=== PATIENT | female | born 1960 | race Caucasian/White ===

== ENCOUNTER 2017-02-27 00:45 | Emergency (ER) | payer OTHER ==
[2017-02-27] MEDS ORDERED: Sodium Chloride 0.9% 1,000 ML IV STA (01:04)
[2017-02-27 01:08] VITALS: O2SAT 98; BMI 29.2
[2017-02-27 01:37] LABS: BASO % 0.1 % (0.0-2.0); EOS # 0.1 K/uL (0.0-0.7); EOS % 1.7 % (0.0-4.0); HEMATOCRIT 41.9 % (34.0-47.0); LYMPH # 0.7 K/uL (1.0-4.3); LYMPH % 8.5 % (20.0-40.0); MEAN CELL VOLUME 84.5 fl (81.0-99.0); MEAN CORPUSCULAR HEMOGLOBIN 27.3 pg (27.0-31.0); MEAN CORPUSCULAR HGB CONC 32.3 g/dL (33.0-37.0); MEAN PLATELET VOLUME 8.4 fl (7.2-11.7); MONO # 0.7 K/uL (0.0-0.8); MONO % 8.8 % (0.0-10.0); NEUT # 6.4 K/uL (1.8-7.0); NEUT % 80.9 % (50.0-75.0); PLATELET COUNT 237 K/uL (130-400); RED CELL DISTRIBUTION WIDTH 13.3 % (11.5-14.5); WHITE BLOOD COUNT 7.9 K/uL (4.8-10.8)
[2017-02-27 01:46] LABS: BLOOD UREA NITROGEN 25 mg/dl (7-17); CALCIUM 8.9 mg/dL (8.4-10.2); CARBON DIOXIDE 23 mmol/L (22-30); CHLORIDE 104 mmol/L (98-107); GFR AFRICAN-AMERICAN > 60; GLUCOSE,RANDOM 137 mg/dL (65-105); POTASSIUM 4.6 MMOL/L (3.6-5.0); SODIUM 141 mmol/l (132-148)
--- NOTE | 2017-02-27 02:13 | ED PDOC ---
HPI:Nausea, Vomiting, Diarrhea Time Seen by Provider: 02/27/17 00:51 Chief Complaint (Nursing): Abdominal Pain Chief Complaint (Provider): n/v/d History Per: Patient History/Exam Limitations: no limitations Onset/Duration Of Symptoms: Hrs Current Symptoms Are (Timing): Intermittent Episodes Have you had recent travel within the past 21 days to any of the following countries: [place], [place], [place] or [place]?: No Additional Complaint(s): 56yo female presents to the ED s/p eating paella for dinner yesterday evening and then woke up in the middle of the night feeling nauseated and vomiting more than 6 times (non-bloody, non-bilious) and also having 6 episodes of watery diarrhea. Denies abdominal pain, fever, chills. Patient feels very weak and tired. Past Medical History Reviewed: Historical Data, Nursing Documentation, Vital Signs Vital Signs: Last Vital Signs Temp 98.6 F 02/27/17 01:05 Pulse 106 H 02/27/17 01:05 Resp 18 02/27/17 01:05 BP 133/89 02/27/17 01:05 Pulse Ox 98 02/27/17 01:05 - Medical History PMH: Diverticulitis, Hyperthyroidism Denies: HIV, Chronic Kidney Disease - Surgical History Surgical History: - Family History Family History: States: No Known Family Hx - Home Medications Home Medications: Ambulatory Orders Medication Instructions Recorded Ciprofloxacin HCl [Cipro] 500 mg PO BID #20 tablet 03/27/16 Dicyclomine [Bentyl] 20 mg PO Q12H PRN 03/27/16 Methimazole [Methimazole] 15 mg PO DAILY 03/27/16 Metronidazole [Flagyl] 500 mg PO BID #20 tablet 03/27/16 Oxycodone HCl/Acetaminophen 1 tab PO Q6 PRN #12 tab 03/27/16 [Percocet 325 mg-5 mg] Vitamin B Complex [Vitamin B 1 tab PO DAILY 03/27/16 Complex] Ondansetron [Zofran] 4 mg PO Q8H #12 tab 02/27/17 - Allergies Allergies/Adverse Reactions: Allergies Allergy/AdvReac Type Severity Reaction Status Date / Time No Known Allergies Allergy Verified 02/27/17 01:04 Review of Systems ROS Statement: Except As Marked, All Systems Reviewed And Found Negative Constitutional: Positive for: Weakness, Other (tired ). Negative for: Fever, Chills Gastrointestinal: Positive for: Nausea, Vomiting, Diarrhea. Negative for: Abdominal Pain Physical Exam - Reviewed Nursing Documentation Reviewed: Yes Vital Signs Reviewed: Yes - Physical Exam Appears: Positive for: Well, No Acute Distress Head Exam: Positive for: ATRAUMATIC, NORMAL INSPECTION, NORMOCEPHALIC Skin: Positive for: Normal Color, Warm, Dry Eye Exam: Positive for: Normal appearance, EOMI, PERRL ENT: Positive for: Normal ENT Inspection Neck: Positive for: Normal, Painless ROM, Supple Cardiovascular/Chest: Positive for: Regular Rate, Rhythm. Negative for: Murmur , Tachycardia Respiratory: Positive for: Normal Breath Sounds. Negative for: Wheezing, Respiratory Distress Gastrointestinal/Abdominal: Positive for: Normal Exam, Soft. Negative for: Tenderness Back: Positive for: Normal Inspection. Negative for: L CVA Tenderness, R CVA Tenderness Extremity: Positive for: Normal ROM. Negative for: Deformity, Swelling Neurologic/Psych: Positive for: Alert, Oriented - Laboratory Results Result Diagrams: 02/27/17 01:34 02/27/17 01:34 - ECG O2 Sat by Pulse Oximetry: 98 Pulse Ox Interpretation: Normal (RA) Medical Decision Making Medical Decision Makin: Impression: viral gastroenteritis Plan: Labs IVF, Zofran 4mg IVP reassess 0240: Patient feeling much better. Tolerated PO. Advised f/u w/ PCP and return precautions given. Scribe Attestation: Documented by Angela Toney acting as a scribe for Austin Cantu MD. Provider Scribe Attestation: All medical record entries made by the Scribe were at my direction and personally dictated by me. I have reviewed the chart and agree that the record accurately reflects my personal performance of the history, physical exam, medical decision making, and the department course for this patient. I have also personally directed, reviewed, and agree with the discharge instructions and disposition. Disposition - Clinical Impression Clinical Impression: Gastroenteritis - Patient ED Disposition Is Patient to be Admitted: No - Disposition Referrals: Shelby Magana MD [Primary Care Provider] - Disposition: Routine/Home Disposition Time: 02:40 Condition: STABLE Prescriptions: Ondansetron [Zofran] 4 mg PO Q8H #12 tab Instructions: Gastroenteritis (DC)
[2017-02-27 02:59] VITALS: BP 129/78; PULSE 89; RESP 20; TEMP 98.7
[2017-02-27 03:28] LABS: EOSINOPHIL 2 % (0-7); NEUTROPHIL 82 % (42-75); TOTAL CELLS COUNTED 100
[2017-02-27 03:29] LABS: LARGE PLATELETS PRESENT
== END 2017-02-27 02:46 | disposition home or self-care (01) ==
LOC: H.ER 00:45
DX: K52.9 Noninfective gastroenteritis and colitis, unspecified (principal); E05.90 Thyrotoxicosis, unspecified without thyrotoxic crisis or storm

== ENCOUNTER 2017-03-11 02:25 | Emergency (ER) | payer OTHER ==
[2017-03-11 02:26] VITALS: BMI 29.2
[2017-03-11] MEDS ORDERED: Sodium Chloride 0.9% 1,000 ML IV STA (03:03)
--- NOTE | 2017-03-11 03:07 | ED PDOC ---
HPI: Abdomen Time Seen by Provider: 03/11/17 02:32 Chief Complaint (Nursing): Abdominal Pain Chief Complaint (Provider): abdominal pain History Per: Patient History/Exam Limitations: no limitations Onset/Duration Of Symptoms: Hrs Location Of Pain/Discomfort: LLQ Associated Symptoms: Diarrhea Additional History Per: Patient Additional Complaint(s): 56 y/o female history of diverticulitis presents with left lower abdominal pain x 1 day. Patient states pain started after eating "fried foods" all day. Associated nonbloody diarrhea. Denies fever, nausea/vomiting, chest pain, shortness of breath, palpitations, dysuria, hematuria. Patient states pain similar to previous diverticulitis flare-ups Past Medical History Reviewed: Historical Data, Nursing Documentation, Vital Signs Vital Signs: Last Vital Signs Temp 98.9 F 03/11/17 02:51 Pulse 89 03/11/17 02:51 Resp 16 03/11/17 02:51 BP 149/90 03/11/17 02:51 Pulse Ox 98 03/11/17 03:49 - Medical History PMH: Diverticulitis, Hyperthyroidism Denies: HIV, Chronic Kidney Disease - Surgical History Surgical History: - Family History Family History: States: Unknown Family Hx - Home Medications Home Medications: Ambulatory Orders Medication Instructions Recorded Ciprofloxacin HCl [Cipro] 500 mg PO BID #20 tablet 03/27/16 Dicyclomine [Bentyl] 20 mg PO Q12H PRN 03/27/16 Methimazole [Methimazole] 15 mg PO DAILY 03/27/16 Metronidazole [Flagyl] 500 mg PO BID #20 tablet 03/27/16 Oxycodone HCl/Acetaminophen 1 tab PO Q6 PRN #12 tab 03/27/16 [Percocet 325 mg-5 mg] Vitamin B Complex [Vitamin B 1 tab PO DAILY 03/27/16 Complex] Ondansetron [Zofran] 4 mg PO Q8H #12 tab 02/27/17 Ciprofloxacin HCl [Cipro] 500 mg PO BID #19 tab 03/11/17 Metronidazole [Flagyl] 500 mg PO TID #29 tablet 03/11/17 - Allergies Allergies/Adverse Reactions: Allergies Allergy/AdvReac Type Severity Reaction Status Date / Time No Known Allergies Allergy Verified 02/27/17 01:04 Review of Systems ROS Statement: Except As Marked, All Systems Reviewed And Found Negative Gastrointestinal: Positive for: Abdominal Pain Physical Exam - Reviewed Vital Signs Reviewed: Yes - Physical Exam Appears: Positive for: Well, Non-toxic, No Acute Distress Head Exam: Positive for: ATRAUMATIC, NORMAL INSPECTION, NORMOCEPHALIC Skin: Positive for: Normal Color Eye Exam: Positive for: Normal appearance ENT: Positive for: Normal ENT Inspection Cardiovascular/Chest: Positive for: Regular Rate, Rhythm Respiratory: Positive for: Normal Breath Sounds Gastrointestinal/Abdominal: Positive for: Bowel Sounds, Soft, Tenderness (llq). Negative for: Distended, Guarding, Rebound Back: Positive for: Normal Inspection. Negative for: L CVA Tenderness, R CVA Tenderness Extremity: Positive for: Normal ROM Neurologic/Psych: Positive for: Alert, Oriented - Laboratory Results Result Diagrams: 03/11/17 03:05 03/11/17 03:05 - ECG O2 Sat by Pulse Oximetry: 98 - Progress ED Course And Treament: labs, urine, IV fluids Patient refusing CT; states pain similar to previous diverticulitis flare ups, which resolves with antibiotics. Agreeable to labs Patient with blood in urine; denies back pain/flank pain, states she just has pain in left lower quadrant which "is diverticulitis because I know my body". Patient educated on findings, discharged with rx cipro, flagyl. Advised follow up PMD 2-3 days. Return to ED for worsening/concerning symptoms. Disposition - Clinical Impression Clinical Impression: Diverticulitis, Hematuria - Patient ED Disposition Is Patient to be Admitted: No Counseled Patient/Family Regarding: Studies Performed, Diagnosis, Need For Followup, Rx Given - Disposition Referrals: Shelby Magana MD [Primary Care Provider] - Disposition: Routine/Home Disposition Time: 03:46 Condition: IMPROVED Additional Instructions: Follow up with primary doctor in 2 days. Take medication as directed. Return to ED for worsening/concerning symptoms. Prescriptions: Ciprofloxacin HCl [Cipro] 500 mg PO BID #19 tab Metronidazole [Flagyl] 500 mg PO TID #29 tablet Instructions: Diverticulitis (ED), Acute Hematuria (ED) Print Language: ENGLISH
[2017-03-11 03:16] LABS: BASO # 0.1 K/uL (0.0-0.2); BASO % 0.4 % (0.0-2.0); EOS # 0.2 K/uL (0.0-0.7); EOS % 1.2 % (0.0-4.0); HEMATOCRIT 40.4 % (34.0-47.0); LYMPH # 1.2 K/uL (1.0-4.3); LYMPH % 9.2 % (20.0-40.0); MEAN CELL VOLUME 83.8 fl (81.0-99.0); MEAN CORPUSCULAR HEMOGLOBIN 27.8 pg (27.0-31.0); MEAN CORPUSCULAR HGB CONC 33.2 g/dL (33.0-37.0); MEAN PLATELET VOLUME 8.9 fl (7.2-11.7); MONO # 1.2 K/uL (0.0-0.8); MONO % 9.5 % (0.0-10.0); NEUT # 10.1 K/uL (1.8-7.0); NEUT % 79.7 % (50.0-75.0); PLATELET COUNT 273 K/uL (130-400); RED CELL DISTRIBUTION WIDTH 13.3 % (11.5-14.5)
[2017-03-11 03:18] LABS: CHLORIDE 103 mmol/L (98-107)
[2017-03-11 03:19] LABS: POTASSIUM 4.5 MMOL/L (3.6-5.0); SODIUM 136 mmol/l (132-148)
[2017-03-11 03:21] LABS: AST/SGOT 28 U/L (14-36); BILIRUBIN,TOTAL 0.6 mg/dl (0.2-1.3); CARBON DIOXIDE 26 mmol/L (22-30); GFR AFRICAN-AMERICAN > 60; WHITE BLOOD COUNT 12.7 K/uL (4.8-10.8)
[2017-03-11 03:22] LABS: ALB/GLOB RATIO 1.1 (1.0-2.1); ALKALINE PHOSPHATASE 79 U/L (38-126); ALT/SGPT 31 U/L (9-52); BLOOD UREA NITROGEN 19 mg/dl (7-17); CALCIUM 9.2 mg/dL (8.4-10.2); GLUCOSE,RANDOM 153 mg/dL (65-105); TOTAL PROTEIN 8.4 G/DL (6.3-8.2)
[2017-03-11 03:25] LABS: RBC URINE 22 /hpf (0-3); URINE BACTERIA RARE (<OCC); URINE BILIRUBIN NEGATIVE (NEGATIVE); URINE BLOOD LARGE (NEGATIVE); URINE COLOR AMBER (YELLOW); URINE GLUCOSE (UA) NEG (Normal); URINE KETONE NEGATIVE (NEGATIVE); URINE LEUKOCYTE ESTERASE NEG Leu/uL (Negative); URINE PROTEIN 30 mg/dL (NEGATIVE); WBC URINE 2 /hpf (0-5)
[2017-03-11 04:16] LABS: EOSINOPHIL 1 % (0-7); NEUTROPHIL 76 % (42-75); TOTAL CELLS COUNTED 100
[2017-03-11 04:38] VITALS: BP 141/85; PULSE 81; RESP 17; TEMP 98.7; O2SAT 99
== END 2017-03-11 04:37 | disposition home or self-care (01) ==
LOC: H.ER 02:25
DX: K57.92 Diverticulitis of intestine, part unspecified, without perforation or abscess without bleeding (principal); R31.9 Hematuria, unspecified; E05.90 Thyrotoxicosis, unspecified without thyrotoxic crisis or storm

== ENCOUNTER 2018-03-13 22:32 | Emergency (ER) | payer OTHER ==
[2018-03-13 22:33] VITALS: BMI 29.2
[2018-03-13] MEDS ORDERED: Sodium Chloride 0.9% 500 ML IV STA (23:52)
[2018-03-14 00:24] LABS: CALCIUM 8.4 mg/dL (8.4-10.2); GFR AFRICAN-AMERICAN > 60; GFR NON-AFRICAN AMERICAN > 60
[2018-03-14 00:29] LABS: BASO % 0.3 % (0.0-2.0); EOS # 0.1 K/uL (0.0-0.7); EOS % 0.6 % (0.0-4.0); HEMOGLOBIN 13.5 g/dL (12.0-16.0); LYMPH # 1.1 K/uL (1.0-4.3); LYMPH % 9.6 % (20.0-40.0); MEAN CELL VOLUME 86.4 fl (81.0-99.0); MEAN CORPUSCULAR HEMOGLOBIN 27.5 pg (27.0-31.0); MEAN CORPUSCULAR HGB CONC 31.8 g/dL (33.0-37.0); MEAN PLATELET VOLUME 8.2 fl (7.2-11.7); MONO # 0.9 K/uL (0.0-0.8); MONO % 7.5 % (0.0-10.0); NEUT # 9.4 K/uL (1.8-7.0); PLATELET COUNT 222 K/uL (130-400); RBC 4.93 Mil/uL (3.80-5.20); RED CELL DISTRIBUTION WIDTH 13.6 % (11.5-14.5); WHITE BLOOD COUNT 11.4 K/uL (4.8-10.8)
[2018-03-14 00:49] LABS: BLOOD UREA NITROGEN 17 mg/dl (7-17)
--- NOTE | 2018-03-14 00:52 | ED PDOC ---
HPI: Abdomen Time Seen by Provider: 03/13/18 23:24 Chief Complaint (Nursing): Abdominal Pain Chief Complaint (Provider): Abdominal Pain History Per: Patient History/Exam Limitations: no limitations Onset/Duration Of Symptoms: Hrs Current Symptoms Are (Timing): Still Present Location Of Pain/Discomfort: LLQ Associated Symptoms: Diarrhea. denies: Fever, Vomiting Additional Complaint(s): 57 year old female with a past medical history of HTN, diabetes, and diverticulitis presents to the ED complaining of ongoing, constant left lower quadrant pain, onset 24 hours. Patient reports of eating beans the day before when intense pain started. Patient states she has had multiple bowel movements that have appeared to be slightly loose. Patient noticed bright red blood in stools. Patient reports current pain appears to be very similar to the pain she felt when diagnosed with diverticulitis. Denies vomiting and fevers. Past Medical History Reviewed: Historical Data, Nursing Documentation, Vital Signs Vital Signs: Last Vital Signs Temp 98 F 03/14/18 02:21 Pulse 96 H 03/14/18 02:21 Resp 18 03/14/18 02:21 BP 140/76 03/14/18 02:21 Pulse Ox 100 03/14/18 02:40 - Medical History PMH: Diverticulitis, Hyperthyroidism Denies: HIV, Chronic Kidney Disease - Surgical History Surgical History: (x3) - Family History Family History: States: Diabetes - Home Medications Home Medications: Ambulatory Orders Medication Instructions Recorded Dicyclomine [Bentyl] 20 mg PO Q12H PRN 03/27/16 Methimazole [Methimazole] 15 mg PO DAILY 03/27/16 Oxycodone HCl/Acetaminophen 1 tab PO Q6 PRN #12 tab 03/27/16 [Percocet 325 mg-5 mg] Vitamin B Complex [Vitamin B 1 tab PO DAILY 03/27/16 Complex] Ondansetron [Zofran] 4 mg PO Q8H #12 tab 02/27/17 Ciprofloxacin HCl [Cipro] 500 mg PO BID #19 tab 03/11/17 Metronidazole [Flagyl] 500 mg PO TID #29 tablet 03/11/17 Ciprofloxacin [Cipro] 1 tab PO BID #20 tab 07/16/17 Dicyclomine [Bentyl] 20 mg PO BID PRN #30 tab 07/16/17 metroNIDAZOLE [Flagyl] 500 mg PO TID #30 tab 07/16/17 Ciprofloxacin HCl [Cipro] 500 mg PO BID #20 tablet 03/14/18 Metronidazole [Flagyl] 500 mg PO BID #20 tablet 03/14/18 - Allergies Allergies/Adverse Reactions: Allergies Allergy/AdvReac Type Severity Reaction Status Date / Time No Known Allergies Allergy Verified 03/13/18 23:17 Review of Systems ROS Statement: Except As Marked, All Systems Reviewed And Found Negative Constitutional: Negative for: Fever Gastrointestinal: Positive for: Abdominal Pain (left lower quadrant), Diarrhea, Hematochezia. Negative for: Vomiting Physical Exam - Reviewed Nursing Documentation Reviewed: Yes Vital Signs Reviewed: Yes - Physical Exam Appears: Positive for: Non-toxic, No Acute Distress Head Exam: Positive for: ATRAUMATIC, NORMOCEPHALIC Skin: Positive for: Normal Color, Warm, Dry Eye Exam: Positive for: Normal appearance, EOMI, PERRL ENT: Positive for: Normal ENT Inspection Neck: Positive for: Normal, Painless ROM, Supple Cardiovascular/Chest: Positive for: Regular Rate, Rhythm. Negative for: Murmur Respiratory: Positive for: Normal Breath Sounds. Negative for: Respiratory Distress Gastrointestinal/Abdominal: Positive for: Normal Exam, Soft, Tenderness (left lower quadrant tenderness) - Laboratory Results Result Diagrams: 03/14/18 00:12 03/14/18 00:12 - ECG O2 Sat by Pulse Oximetry: 100 (RA) Pulse Ox Interpretation: Normal Medical Decision Making Medical Decision Making: Time: 2356 Impression: left lower quadrant pain Differentials include but not limited to acute diverticulitis vs UTI Plan: -- CT Abd/Pelvis IV -- BMP -- ED Urine Dipstick -- CBC with differentials -- Bentyl 10 mg PO -- Morphine 2 mg IVPG -- Sodium Chrloide 500 mls/hr Time: 236 CT ABD/PELVIS IV RESULTS FINDINGS: Limitations: Motion artifact - mild. Lung bases: Minimal atelectasis/scarring. Heart: Mild cardiomegaly. 5.2 x 6.1 x 5.8 cm mass within right atrium. Mediastinum: Small hiatal hernia. ABDOMEN: Liver: Fatty infiltration. Gallbladder and bile ducts: No calcified stones. No ductal dilation. Pancreas: No ductal dilation. No mass. Spleen: No splenomegaly. Adrenals: No mass. Kidneys and ureters: No mass. Bilateral extrarenal pelvis. No hydronephrosis. Stomach and bowel: Scattered diverticula within colon. Xaxw-sw-dffkzlcs mural thickening short segment of proximal sigmoid colon. Lqse-qv-hninokap stranding within adjacent fat. No obstruction. PELVIS: Appendix: No findings to suggest acute appendicitis. Bladder: Unremarkable. Reproductive: Lobulated uterus with scattered coarse calcifications. ABDOMEN and PELVIS: Intraperitoneal space: Trace free fluid within pelvis. No free air. Bones/joints: Degenerative changes of spine. No acute fracture. Soft tissues: Apparent 0.4 x 0.4 cm asymmetric soft tissue density within right breast. Vasculature: Minimal atherosclerotic disease of aorta. No aneurysm. Lymph nodes: No pathologically enlarged lymph nodes. IMPRESSION: 1. Findings compatible with acute diverticulitis of sigmoid colon. Recommend endoscopy following resolution. 2. Mass within right atrium. Recommend cardiac ultrasound. 3. Probable fibroid uterus. 4. Right breast lesion. Correlate with mammography. 5. Incidental/non-acute findings are described above. Thank you for allowing us to participate in the care of your patient. Dictated and Authenticated by: Lance Orourke MD 03/14/2018 2:31 AM Eastern Time ([place] & [place]) Scribe Attestation: Documented by Patricia Lopez, acting as a scribe for Dr. Cami Gaines MD. Provider Scribe Attestation: All medical record entries made by the Scribe were at my direction and personally dictated by me. I have reviewed the chart and agree that the record accurately reflects my personal performance of the history, physical exam, medical decision making, and the department course for this patient. I have also personally directed, reviewed, and agree with the discharge instructions and disposition. Disposition - Clinical Impression Clinical Impression: Diverticulitis, Right atrial mass, Breast lesion - Patient ED Disposition Is Patient to be Admitted: No Doctor Will See Patient In The: Office Counseled Patient/Family Regarding: Studies Performed, Diagnosis, Need For Followup - Disposition Referrals: [facility] [Outside] Disposition: Routine/Home Disposition Time: 02:37 Condition: GOOD Additional Instructions: You have diverticulitis. Take you medications as instructed. You CT shows that you have atrial mass for which you will need ultrasound. You have lesion in your breast and you need mammography. Follow up with your PCP in 2-3 days. Prescriptions: Ciprofloxacin HCl [Cipro] 500 mg PO BID #20 tablet Metronidazole [Flagyl] 500 mg PO BID #20 tablet Instructions: Mammography, Diverticulitis
[2018-03-14] MEDS ORDERED: Iohexol 300 100 ML IJ ONE (01:07)
[2018-03-14] MEDS ORDERED: Sodium Chloride 0.9% 50 ML IV ONE (01:08)
[2018-03-14] MEDS: DiphenhydrAMINE 50 mg/ml Inj IV STA ×2 (02:21→02:39)
[2018-03-14 02:22] VITALS: RESP 18; TEMP 98
--- NOTE | 2018-03-14 02:31 | CT ---
EXAM: CT Abdomen and Pelvis With Intravenous Contrast CLINICAL HISTORY: 57 years old, female; Pain; Abdominal pain; Flank; Left lower quadrant (llq); Additional info: Llq pain TECHNIQUE: Axial computed tomography images of the abdomen and pelvis with intravenous contrast. All CT scans at this facility use one or more dose reduction techniques, viz.: automated exposure control; ma/kV adjustment per patient size (including targeted exams where dose is matched to indication; i.e. head); or iterative reconstruction technique. Coronal and sagittal reformatted images were created and reviewed. CONTRAST: 95 mL of omnipaque 300 administered intravenously. COMPARISON: No relevant prior studies available. FINDINGS: Limitations: Motion artifact - mild. Lung bases: Minimal atelectasis/scarring. Heart: Mild cardiomegaly. 5.2 x 6.1 x 5.8 cm mass within right atrium. Mediastinum: Small hiatal hernia. ABDOMEN: Liver: Fatty infiltration. Gallbladder and bile ducts: No calcified stones. No ductal dilation. Pancreas: No ductal dilation. No mass. Spleen: No splenomegaly. Adrenals: No mass. Kidneys and ureters: No mass. Bilateral extrarenal pelvis. No hydronephrosis. Stomach and bowel: Scattered diverticula within colon. Zbdk-go-vcryacsg mural thickening short segment of proximal sigmoid colon. Mloe-tx-erjpcpcb stranding within adjacent fat. No obstruction. PELVIS: Appendix: No findings to suggest acute appendicitis. Bladder: Unremarkable. Reproductive: Lobulated uterus with scattered coarse calcifications. ABDOMEN and PELVIS: Intraperitoneal space: Trace free fluid within pelvis. No free air. Bones/joints: Degenerative changes of spine. No acute fracture. Soft tissues: Apparent 0.4 x 0.4 cm asymmetric soft tissue density within right breast. Vasculature: Minimal atherosclerotic disease of aorta. No aneurysm. Lymph nodes: No pathologically enlarged lymph nodes. IMPRESSION: 1. Findings compatible with acute diverticulitis of sigmoid colon. Recommend endoscopy following resolution. 2. Mass within right atrium. Recommend cardiac ultrasound. 3. Probable fibroid uterus. 4. Right breast lesion. Correlate with mammography. 5. Incidental/non-acute findings are described above.
[2018-03-14] MEDS ORDERED: DiphenhydrAMINE 50 mg/ml Inj ONE (02:40)
[2018-03-14 02:48] LABS: LYMPHOCYTE 17 % (20-50); MONOCYTE 4 % (0-10); NEUTROPHIL 79 % (42-75); PLATELET ESTIMATE NORMAL (NORMAL); TOTAL CELLS COUNTED 100
[2018-03-14 03:11] VITALS: BP 138/76; PULSE 78; O2SAT 98
== END 2018-03-14 03:11 | disposition home or self-care (01) ==
LOC: H.ER 22:32
DX: K57.92 Diverticulitis of intestine, part unspecified, without perforation or abscess without bleeding (principal); R22.2 Localized swelling, mass and lump, trunk; N64.89 Other specified disorders of breast; E05.90 Thyrotoxicosis, unspecified without thyrotoxic crisis or storm
CPT/HCPCS: 74177; 80048; 85025; 96360; 99284; J1200; J7030; Q9967

== ENCOUNTER 2018-09-10 13:46 | Emergency (ER) | payer OTHER ==
[2018-09-10 13:47] VITALS: BMI 29.2
[2018-09-10 13:58] VITALS: PULSE 123; RESP 20; TEMP 97.6
--- NOTE | 2018-09-10 14:56 | ED PDOC ---
HPI: Hypertension/Hypotension Time Seen by Provider: 09/10/18 14:06 Chief Complaint (Nursing): High Blood Pressure Past Medical History Vital Signs: Last Vital Signs Temp 97.6 F 09/10/18 13:55 Pulse 123 H 09/10/18 13:55 Resp 20 09/10/18 13:55 BP 131/83 09/10/18 14:21 Pulse Ox 100 09/10/18 13:55 - Medical History PMH: Diverticulitis, Hyperthyroidism, Kidney Stones Denies: HIV, Chronic Kidney Disease - Surgical History Surgical History: (x3) - Family History Family History: States: Unknown Family Hx, Diabetes - Home Medications Home Medications: Ambulatory Orders Medication Instructions Recorded Dicyclomine [Bentyl] 20 mg PO Q12H PRN 03/27/16 Methimazole 15 mg PO DAILY 03/27/16 Oxycodone HCl/Acetaminophen 1 tab PO Q6 PRN #12 tab 03/27/16 [Percocet 325 mg-5 mg] Vitamin B Complex 1 tab PO DAILY 03/27/16 Ondansetron [Zofran] 4 mg PO Q8H #12 tab 02/27/17 Ciprofloxacin HCl [Cipro] 500 mg PO BID #19 tab 03/11/17 Metronidazole [Flagyl] 500 mg PO TID #29 tablet 03/11/17 Ciprofloxacin [Cipro] 1 tab PO BID #20 tab 07/16/17 Dicyclomine [Bentyl] 20 mg PO BID PRN #30 tab 07/16/17 metroNIDAZOLE [Flagyl] 500 mg PO TID #30 tab 07/16/17 Ciprofloxacin HCl [Cipro] 500 mg PO BID #20 tablet 03/14/18 Metronidazole [Flagyl] 500 mg PO BID #20 tablet 03/14/18 Ondansetron ODT [Zofran ODT] 4 mg PO Q8 PRN #12 odt 03/14/18 - Allergies Allergies/Adverse Reactions: Allergies Allergy/AdvReac Type Severity Reaction Status Date / Time No Known Allergies Allergy Verified 09/10/18 13:55 - ECG O2 Sat by Pulse Oximetry: 100 Medical Decision Making Medical Decision Making: patient's repeat BP while being seen is 140/92. She is not in distress or discomfort. She had outpatient blood tests done by her PMD and will be seeing him on Thursday (09/13/2018) for followup. Disposition - Clinical Impression Clinical Impression: Elevated blood pressure reading - Patient ED Disposition Is Patient to be Admitted: No Doctor Will See Patient In The: Office Counseled Patient/Family Regarding: Diagnosis, Need For Followup - Disposition Disposition: Routine/Home Disposition Time: 14:45 Condition: STABLE Additional Instructions: Keep your appointment with your personal physician as scheduled on Thursday09/13/2018. Instructions: High Blood Pressure in Adults Print Language: TURKISH - POA Present On Arrival: None
--- NOTE | 2018-09-10 14:57 | ED PDOC ---
HPI: Hypertension/Hypotension Time Seen by Provider: 09/10/18 14:06 Chief Complaint (Nursing): High Blood Pressure Chief Complaint (Provider): Hypertension History Per: Patient History/Exam Limitations: no limitations Onset/Duration Of Symptoms: Days Current Symptoms Are (Timing): Better Additional Complaint(s): 57 year old female presents to the ED for an evaluation of increased blood pressure. Patient visited her PMD, Dr. Ch to check her blood pressure was 176/181 and was advised to come to the ER. She went to [facility] pharmacy to check her blood pressure and it was high. Denies nausea, vomiting, dizziness or headache. PMD: Dr. Ch Past Medical History Reviewed: Historical Data, Nursing Documentation, Vital Signs Vital Signs: Last Vital Signs Temp 97.6 F 09/10/18 13:55 Pulse 123 H 09/10/18 13:55 Resp 20 09/10/18 13:55 BP 131/83 09/10/18 14:21 Pulse Ox 100 09/10/18 13:55 - Medical History PMH: Diverticulitis, Hyperthyroidism, Kidney Stones Denies: HIV, Chronic Kidney Disease - Surgical History Surgical History: (x3) - Family History Family History: States: Unknown Family Hx, Diabetes - Social History Current smoker - smoking cessation education provided: No Alcohol: None Drugs: Denies - Home Medications Home Medications: Ambulatory Orders Medication Instructions Recorded Dicyclomine [Bentyl] 20 mg PO Q12H PRN 03/27/16 Methimazole 15 mg PO DAILY 03/27/16 Oxycodone HCl/Acetaminophen 1 tab PO Q6 PRN #12 tab 03/27/16 [Percocet 325 mg-5 mg] Vitamin B Complex 1 tab PO DAILY 03/27/16 Ondansetron [Zofran] 4 mg PO Q8H #12 tab 02/27/17 Ciprofloxacin HCl [Cipro] 500 mg PO BID #19 tab 03/11/17 Metronidazole [Flagyl] 500 mg PO TID #29 tablet 03/11/17 Ciprofloxacin [Cipro] 1 tab PO BID #20 tab 07/16/17 Dicyclomine [Bentyl] 20 mg PO BID PRN #30 tab 07/16/17 metroNIDAZOLE [Flagyl] 500 mg PO TID #30 tab 07/16/17 Ciprofloxacin HCl [Cipro] 500 mg PO BID #20 tablet 03/14/18 Metronidazole [Flagyl] 500 mg PO BID #20 tablet 03/14/18 Ondansetron ODT [Zofran ODT] 4 mg PO Q8 PRN #12 odt 03/14/18 - Allergies Allergies/Adverse Reactions: Allergies Allergy/AdvReac Type Severity Reaction Status Date / Time No Known Allergies Allergy Verified 09/10/18 13:55 Review of Systems ROS Statement: Except As Marked, All Systems Reviewed And Found Negative Gastrointestinal: Negative for: Nausea, Vomiting Neurological: Negative for: Headache, Dizziness Physical Exam - Reviewed Nursing Documentation Reviewed: Yes Vital Signs Reviewed: Yes - Physical Exam Appears: Positive for: Well, Non-toxic, No Acute Distress Head Exam: Positive for: ATRAUMATIC, NORMAL INSPECTION, NORMOCEPHALIC Skin: Positive for: Normal Color, Warm, Dry. Negative for: Rash Eye Exam: Positive for: EOMI, Normal appearance, PERRL ENT: Positive for: Normal ENT Inspection Neck: Positive for: Normal, Painless ROM, Supple. Negative for: Decreased ROM Cardiovascular/Chest: Positive for: Regular Rate, Rhythm, Tachycardia Respiratory: Positive for: Normal Breath Sounds. Negative for: Decreased Breath Sounds, Wheezing, Respiratory Distress Gastrointestinal/Abdominal: Positive for: Normal Exam, Soft. Negative for: Tenderness, Guarding, Rebound Back: Positive for: Normal Inspection Extremity: Positive for: Normal ROM. Negative for: Tenderness, Pedal Edema, Deformity Neurologic/Psych: Positive for: Alert, Oriented (x3). Negative for: Motor/Sensory Deficits - ECG O2 Sat by Pulse Oximetry: 100 (RA) Pulse Ox Interpretation: Normal Medical Decision Making Medical Decision Making: Time: 1423 Initial Plan: EKG Reevaluation Scribe Attestation: Documented by Gary Terry, acting as a scribe for Brittany Mcginnis MD. Provider Scribe Attestation: All medical record entries made by the Scribe were at my direction and personally dictated by me. I have reviewed the chart and agree that the record accurately reflects my personal performance of the history, physical exam, medical decision making, and the department course for this patient. I have also personally directed, reviewed, and agree with the discharge instructions and disposition. Disposition - Clinical Impression Clinical Impression: Elevated blood pressure reading - Patient ED Disposition Is Patient to be Admitted: No Doctor Will See Patient In The: Office Counseled Patient/Family Regarding: Diagnosis, Need For Followup - Disposition Disposition: Routine/Home Disposition Time: 14:58 Condition: STABLE Additional Instructions: Keep your appointment with your personal physician as scheduled on Thursday09/13/2018. Instructions: High Blood Pressure in Adults Forms: [facility] (Z[place]ian) Print Language: NEPALESE - POA Present On Arrival: None
[2018-09-10 15:14] VITALS: BP 130/80; O2SAT 99
== END 2018-09-10 15:17 | disposition home or self-care (01) ==
LOC: H.ER 13:46
DX: I10 Essential (primary) hypertension (principal)

== ENCOUNTER 2018-10-20 01:33 | Inpatient (IN) | payer OTHER ==
[2018-10-20 01:33] VITALS: BMI 29.2
[2018-10-20] MEDS ORDERED: Morphine 4 MG/ML VIAL IV ONE (02:31)
--- NOTE | 2018-10-20 02:32 | ED PDOC ---
HPI: Abdomen Time Seen by Provider: 10/20/18 02:00 Chief Complaint (Nursing): Abdominal Pain Chief Complaint (Provider): Abdominal Pain History Per: Patient History/Exam Limitations: no limitations Onset/Duration Of Symptoms: Days (x 1) Current Symptoms Are (Timing): Still Present Location Of Pain/Discomfort: Suprapubic Quality Of Discomfort: "Pain" Associated Symptoms: Diarrhea, Other (hematochezia) Last Bowel Movement: Today Additional Complaint(s): 57 year old female with a history of hyperthyroidism and diverticulitis presents to the ED with lower abdominal pain, blood in her stool and an episode of diarrhea beginning tonight. Patient reports she was seen at this ED in March and had a full workup done that was negative. She did not take any medications at [facility]. Offers no other complaints at this time. PMD: Dr. Shelby Magana Past Medical History Reviewed: Historical Data, Nursing Documentation, Vital Signs Vital Signs: Last Vital Signs Temp 99.6 F 10/20/18 01:44 Pulse 106 H 10/20/18 01:44 Resp 16 10/20/18 01:44 BP 140/91 H 10/20/18 01:44 Pulse Ox 97 10/20/18 01:44 - Medical History PMH: Diverticulitis, Hyperthyroidism, Kidney Stones Denies: HIV, Chronic Kidney Disease - Surgical History Surgical History: (x3) - Family History Family History: States: Unknown Family Hx, Diabetes - Social History Current smoker - smoking cessation education provided: No Alcohol: None Drugs: Denies - Home Medications Home Medications: Ambulatory Orders Medication Instructions Recorded Dicyclomine [Bentyl] 20 mg PO Q12H PRN 03/27/16 Methimazole 15 mg PO DAILY 03/27/16 Oxycodone HCl/Acetaminophen 1 tab PO Q6 PRN #12 tab 03/27/16 [Percocet 325 mg-5 mg] Vitamin B Complex 1 tab PO DAILY 03/27/16 Ondansetron [Zofran] 4 mg PO Q8H #12 tab 02/27/17 Ciprofloxacin HCl [Cipro] 500 mg PO BID #19 tab 03/11/17 Metronidazole [Flagyl] 500 mg PO TID #29 tablet 03/11/17 Ciprofloxacin [Cipro] 1 tab PO BID #20 tab 07/16/17 Dicyclomine [Bentyl] 20 mg PO BID PRN #30 tab 07/16/17 metroNIDAZOLE [Flagyl] 500 mg PO TID #30 tab 07/16/17 Ciprofloxacin HCl [Cipro] 500 mg PO BID #20 tablet 03/14/18 Metronidazole [Flagyl] 500 mg PO BID #20 tablet 03/14/18 Ondansetron ODT [Zofran ODT] 4 mg PO Q8 PRN #12 odt 03/14/18 - Allergies Allergies/Adverse Reactions: Allergies Allergy/AdvReac Type Severity Reaction Status Date / Time No Known Allergies Allergy Verified 10/20/18 01:45 Review of Systems ROS Statement: Except As Marked, All Systems Reviewed And Found Negative Constitutional: Negative for: Fever Gastrointestinal: Positive for: Abdominal Pain, Diarrhea, Hematochezia Genitourinary Female: Negative for: Dysuria, Frequency, Incontinence, Hematuria Physical Exam - Reviewed Nursing Documentation Reviewed: Yes Vital Signs Reviewed: Yes - Physical Exam Appears: Positive for: No Acute Distress Head Exam: Positive for: ATRAUMATIC, NORMAL INSPECTION, NORMOCEPHALIC Skin: Positive for: Normal Color, Warm, Dry Eye Exam: Positive for: EOMI, Normal appearance, PERRL Neck: Positive for: Normal, Painless ROM, Supple Cardiovascular/Chest: Positive for: Tachycardia (regular rhythm) Respiratory: Positive for: Normal Breath Sounds. Negative for: Respiratory Distress Gastrointestinal/Abdominal: Positive for: Normal Exam, Soft. Negative for: Tenderness Extremity: Positive for: Normal ROM (x 4). Negative for: Deformity Neurologic/Psych: Positive for: Alert, Oriented (x 3). Negative for: Motor/Sensory Deficits - Laboratory Results Result Diagrams: 10/20/18 02:45 10/20/18 02:45 - ECG O2 Sat by Pulse Oximetry: 97 (RA) Pulse Ox Interpretation: Normal Medical Decision Making Medical Decision Makin:31 Impression: abdominal pain Initial Plan: --CT Abd Pelvis --CMP --CBC --Morphine 4 mg IV --NS IV --Omnipaque 50 ml PO --Toradol 15 mg IVP --Zofran Inj 4 mg IV --Blood cx --Urine cx --UA 05:51 CT Abd Pelvis FINDINGS: Minimal subsegmental atelectatic airspace disease of the right lower lobe. Uncomplicated acute diverticulitis of the descending colon. No perforation or abscess formation. Heterogeneous enlarged uterus with multiple fibroids. Mildly enlarged unenhanced liver. Normal gallbladder and extrahepatic biliary system. Normal unenhanced spleen. Normal pancreas. Normal bilateral adrenal glands. Normal size of the right kidney. There is no right renal mass. There are no right renal calculi. There is no right hydronephrosis. Normal visualized right ureter. Normal size of the left kidney. There is no left renal mass. There are no left renal calculi. There is no left hydronephrosis. Normal visualized left ureter. Normal visualized stomach. Normal small intestine. The appendix is visualized and appears normal. There is no demonstrated peritoneal fluid. Normal abdominal aorta. Normal inferior vena cava. Normal retroperitoneum. Normal urinary bladder. There is no pelvic mass lesion or lymphadenopathy. There is no pelvic fluid. Normal abdominal wall. Normal osseous structures. IMPRESSION: Uncomplicated acute diverticulitis of the descending colon. Scribe Attestation: Documented by Celia Davenport acting as a scribe for Nader Mcintyre MD Provider Scribe Attestation: All medical record entries made by the Scribe were at my direction and personally dictated by me. I have reviewed the chart and agree that the record accurately reflects my personal performance of the history, physical exam, medic al decision making, and the department course for this patient. I have also personally directed, reviewed, and agree with the discharge instructions and disposition. Disposition - Disposition Forms: [employer] ([place] Citizen)
[2018-10-20] MEDS ORDERED: Iohexol 240 (50 ml) PO ONE (02:35)
[2018-10-20] MEDS ORDERED: Morphine 4 MG/ML VIAL ONE (02:40)
[2018-10-20] MEDS ORDERED: Iohexol 240 (50 ml) ONE (02:43)
[2018-10-20] MEDS ORDERED: Sodium Chloride 0.9% 1,000 ML IV STA ×2 (02:44→06:28)
[2018-10-20 03:19] LABS: BASO % 0.4 % (0.0-2.0); EOS # 0.1 K/uL (0.0-0.7); EOS % 1.2 % (0.0-4.0); HEMOGLOBIN 12.2 g/dL (12.0-16.0); LYMPH # 1.2 K/uL (1.0-4.3); LYMPH % 13.2 % (20.0-40.0); MEAN CELL VOLUME 87.1 fl (81.0-99.0); MEAN CORPUSCULAR HEMOGLOBIN 27.6 pg (27.0-31.0); MEAN CORPUSCULAR HGB CONC 31.7 g/dL (33.0-37.0); MEAN PLATELET VOLUME 8.1 fl (7.2-11.7); MONO # 1.1 K/uL (0.0-0.8); MONO % 12.9 % (0.0-10.0); NEUT # 6.4 K/uL (1.8-7.0); NEUT % 72.3 % (50.0-75.0); NRBC % 0.1 % (0.0-0.0); RBC 4.43 Mil/uL (3.80-5.20); RED CELL DISTRIBUTION WIDTH 13.3 % (11.5-14.5); WHITE BLOOD COUNT 8.8 K/uL (4.8-10.8)
[2018-10-20 03:29] LABS: ALBUMIN 3.7 g/dL (3.5-5.0); ALT/SGPT 34 U/L (9-52); AST/SGOT 29 U/L (14-36); BLOOD UREA NITROGEN 20 mg/dl (7-17); GFR NON-AFRICAN AMERICAN > 60
[2018-10-20 03:31] LABS: SQUAMOUS EPITHIAL 4 /hpf (0-5); URINE BACTERIA OCC (<OCC); URINE BILIRUBIN NEGATIVE (NEGATIVE); URINE BLOOD LARGE (NEGATIVE); URINE CALCIUM OXALATE CRYSTALS MOD /hpf (<OCC); URINE CLARITY CLOUDY (Clear); URINE COLOR YELLOW (YELLOW); URINE GLUCOSE (UA) NEG (NEGATIVE); URINE LEUKOCYTE ESTERASE NEG Leu/uL (Negative); URINE PROTEIN 30 mg/dL (NEGATIVE); URINE UROBILINOGEN 0.2-1.0 mg/dL (0.2-1.0)
--- NOTE | 2018-10-20 09:53 | RAD ---
Date of service: 10/20/2018 PROCEDURE: CHEST RADIOGRAPH, 1 VIEW HISTORY: ABDOMINAL PAIN COMPARISON: 03/16/2013 FINDINGS: LUNGS: No consolidation. Mild pulmonary venous congestion suspect. PLEURA: No pneumothorax or pleural fluid seen. CARDIOVASCULAR: There is presence of aortic atherosclerotic calcification on x-ray. Cardiomegaly probably increased since prior exam. Consider cardiology consultation if not already had. OSSEOUS STRUCTURES: Thoracic spondylosis. VISUALIZED UPPER ABDOMEN: Normal. OTHER FINDINGS: None. IMPRESSION: Interval increased cardiomegaly suspect-as referenced above. Concomitant mild pulmonary venous congestion No subdiaphragmatic free air appreciated.
[2018-10-20] MEDS ORDERED: metroNIDAZOLE 500mg/100ml NS 100 ML IVPB ONE (10:03)
[2018-10-20] MEDS: metroNIDAZOLE 500mg/100ml NS 100 ML IVPB SCH ×2 (10:08→18:49)
[2018-10-20] MEDS: Dextrose 5%/Lactated Ringer's 1,000 ML IV SCH ×2 (10:19→21:43)
[2018-10-20] MEDS: Ciprofloxacin 200mg/100ml D5W 100 ML IVPB SCH ×2 (12:15→21:42)
--- NOTE | 2018-10-20 12:46 | CT ---
Date of service: 10/20/2018 PROCEDURE: CT Abdomen and Pelvis with contrast HISTORY: abd pain llq COMPARISON: 03/14/2018 CT abdomen and pelvis with IV contrast TECHNIQUE: Contrast dose: No IV contrast administered Radiation dose: Total exam DLP = 702.64 mGy-cm. This CT exam was performed using one or more of the following dose reduction techniques: Automated exposure control, adjustment of the mA and/or kV according to patient size, and/or use of iterative reconstruction technique. FINDINGS: LOWER THORAX: Thread-like bibasilar scar and/or atelectasis. No interval suspect pathology noted A large 5 0.6 cm hypodense mass in the region the right atrium is hree suggested. The prior mention of a right breast lesion is difficult to identify as such on this exam. Correlation with this year's mammography and right breast ultrasound is advised. LIVER: Unremarkable. No gross lesion or ductal dilatation. GALLBLADDER AND BILE DUCTS: Unremarkable. PANCREAS: Unremarkable. No gross lesion or ductal dilatation. SPLEEN: Unremarkable. ADRENALS: Unremarkable. No mass. KIDNEYS AND URETERS: bilateral extra renal pelviectasis status noted. No peripheral caliectasis seen to suggest concomitant hydronephrosis. VASCULATURE: Unremarkable. No aortic aneurysm. No aortic atherosclerotic calcification or mural plaque present. BOWEL: No bowel obstruction seen. The extensive left colonic diverticulosis is re-noted. There is less surrounding dirty fat as was suggested previously. However there is still some significant abnormal linear and amorphous soft tissue density changing sin the fat of the left pericolic gutter that appears more pronounced at the iliac crest and above this level compared to the prior study. This left descending long segment of colonic mural thickening appears increased compared to the prior study a prior diverticulitis and pericolonic inflammatory changes appeared is the distal to this overseas current coronal series 601, image 51 with prior series 601, image 43 there also some left more proximal descending colonic diverticula low cysts findings present and some concomitant lesser degrees of left mid to upper descending thoracic colonic diverticulitis is compatible with this. The pericolonic inflammatory changes were more pronounced and slightly more distal at this level than currently suggested. Mention previously-neoplastic concomitant pathology in this area of a left descending colon mural thickening needs to be considered. Unknown if the patient has had some interval colonoscopy. These left paracolic gutter any soft tissue inflammatory changes boarding after mention left descending colonic circumferential mural thickening and pericolonic dirty fat inflammatory changes are also nearly contiguous with the left kidney which appears grossly unremarkable. On this non IV contrast enhanced study here with the exception of a similar bilateral extra renal pelviectasis status noted. No peripheral caliectasis seen to suggest concomitant hydronephrosis. . APPENDIX: Normal appendix. PERITONEUM: Stranding inflammatory changes left pericolic gutter as referenced above in the bowel section. LYMPH NODES: Unremarkable. No enlarged lymph nodes. BLADDER: Unremarkable. REPRODUCTIVE: Boarding the sigmoid colon studded with diverticulosis and in the area of prior diverticulitis there is oval soft tissue density measuring 2.9 x 1.8 cm overseas axis series 3, image 114-no separate left ovary elsewhere in the left hemipelvis is identified-appearance is compatible with a high left ovary and excluding the prior diverticulitis changes-no interval change in the soft tissue component is suggested. A separate right ovary is difficult to identify with certainty-some blending of the right ovary also high in position with a posterior pedunculated calcified fibroid is possible-the right posterolateral soft tissue fullness bordering the uterus with a prominent calcifications here are similar in appearance overseas axis series 3, image 116. BONES: No acute fracture. Lumbar spondylosis. OTHER FINDINGS: None. IMPRESSION: Findings are compatible with left descending colonic diverticulosis and diverticulitis. The current inflammatory changes are seen just proximal to the prior area of sigmoid diverticulitis.. Interval increased strandy inflammatory like changes of the left paracolic gutter/left peritoneum here. As mentioned [id number] evaluation of these left colonic areas of mural thickening regarding possible colonic mural malignancy needs to be considered. Mural hyperplasia relating to diverticulosis versus mural thickening relating to malignant neoplasia are the differential considerations. Changes are as above. Gastroenterology consultation follow-up advised. No obstruction or free air seen. No gross drainable abscesses noted. 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 Per an earlier echo cardiogram, 08/21/2014 referencing a mass here-current CT suggest larger size than that previously reported on the echocardiogram. Interval growth of a right atrial mass is inferred. Follow-up cardiac consultation recommended. Findings compatible with calcified uterine fibroid. Comments: The right cardiac intra atrial mass was not mentioned on the preliminary [place] rad repor. It has been noted on prior studies. This is difficult to perceive on this exam. Prior CT follow-up recommendations hree recommended if not having already been performed. At minimum correlation with any recent same year mammograms and right breast ultrasound is advised. Interval change in the degree and location of left pericolic inflammatory changes. Interval increased strandy soft tissue inflammatory like changes affecting the left pericolic peritoneum as referenced above. As mentioned before diverticulitis with hyperplasia versus diverticulitis with malignant mural colonic neoplasm needs to be considered. Gastroenterology follow-up advised. Comments: Study marked for PA review .
--- NOTE | 2018-10-20 15:27 | CP.PCM.CON ---
History of Present Illness - History of Present Illness History of Present Illness: 57 yo female with past h/o diverticulitis admitted with LLQ abdominal pain. Patient has had past simlar episodes. Review of Systems - Constitutional Constitutional: Chills - EENT Eyes: absent: Blurred Vision Ears: absent: Ear Pain - Cardiovascular Cardiovascular: absent: Chest Pain - Respiratory Respiratory: absent: Dyspnea - Gastrointestinal Gastrointestinal: Abdominal Pain - Genitourinary Genitourinary: absent: Change in Urinary Stream Past Patient History - Infectious Disease Hx of Infectious Diseases: None - Tetanus Immunizations Tetanus Immunization: Unknown - Past Medical History & Family History Past Medical History?: Yes - Past Social History Alcohol: None Drugs: Denies - CARDIAC Hx Cardiac Disorders: Yes Other/Comment: Mass on heart (benign) - PULMONARY Hx Respiratory Disorders: No - NEUROLOGICAL Hx Neurological Disorder: No - HEENT Hx HEENT Problems: No - RENAL Hx Chronic Kidney Disease: No Hx Kidney Stones: Yes - ENDOCRINE/METABOLIC Hx Hyperthyroidism: Yes - HEMATOLOGICAL/ONCOLOGICAL Hx Human Immunodeficiency Virus (HIV): No - INTEGUMENTARY Hx Dermatological Problems: No - MUSCULOSKELETAL/RHEUMATOLOGICAL Hx Musculoskeletal Disorders: No - GASTROINTESTINAL Hx Diverticulitis: Yes - GENITOURINARY/GYNECOLOGICAL Hx Genitourinary Disorders: No - PSYCHIATRIC Hx Psychophysiologic Disorder: No Hx Substance Use: No - SURGICAL HISTORY Hx Surgeries: Yes Hx Section: Yes (1989; 1986; 1980) - ANESTHESIA Hx Anesthesia: Yes Hx Anesthesia Reactions: No Hx Malignant Hyperthermia: No Meds Allergies/Adverse Reactions: Allergies Allergy/AdvReac Type Severity Reaction Status Date / Time No Known Allergies Allergy Verified 10/20/18 01:45 - Medications Medications: Current Medications Atenolol (Tenormin) 25 mg PO DAILY [facility] Last Admin: 10/20/18 11:15 Dose: 25 mg Diltiazem HCl (Cardizem) 30 mg PO QID PEPE Last Admin: 10/20/18 11:14 Dose: 30 mg Ciprofloxacin (Cipro 200mg/100ml D5w) 100 mls @ 100 mls/hr IVPB Q12 [facility]; Pro tocol Last Admin: 10/20/18 12:15 Dose: 100 mls/hr Metronidazole (Flagyl 500mg/100ml Ns) 100 mls @ 100 mls/hr IVPB Q8 [facility]; Protocol Last Admin: 10/20/18 10:08 Dose: 100 mls/hr Dextrose/Lactated Ringer's (Dextrose 5%/Lactated Ringer's) 1,000 mls @ 100 mls/hr IV .Q10H [facility] Stop: 10/21/18 09:11 Last Admin: 10/20/18 10:19 Dose: 100 mls/hr Ketorolac Tromethamine (Toradol) 15 mg IVP Q6 PRN PRN Reason: Pain, moderate (4-7) Methimazole (Tapazole) 10 mg PO QAM [facility] Last Admin: 10/20/18 11:18 Dose: 10 mg Pantoprazole Sodium (Protonix Inj) 40 mg IVP DAILY [facility] Last Admin: 10/20/18 10:09 Dose: 40 mg Physical Exam - Head Exam Head Exam: ATRAUMATIC - Eye Exam Eye Exam: Normal appearance - ENT Exam ENT Exam: Normal Exam - Neck Exam Neck exam: Positive for: Normal Inspection - Respiratory Exam Respiratory Exam: Clear to Auscultation Bilateral, NORMAL BREATHING PATTERN - Cardiovascular Exam Cardiovascular Exam: +S1, +S2 - GI/Abdominal Exam GI & Abdominal Exam: Soft, Tenderness Additional comments: LLQ tendrness with guarding Results - Vital Signs Recent Vital Signs: Last Vital Signs Temp 98.4 F 10/20/18 06:51 Pulse 100 H 10/20/18 11:15 Resp 18 10/20/18 11:14 BP 144/93 H 10/20/18 11:15 Pulse Ox 98 10/20/18 11:14 - Labs Result Diagrams: 10/20/18 02:45 10/20/18 02:45 Labs: Laboratory Results - last 24 hr 10/20/18 10/20/18 10/20/18 02:45 02:45 02:45 WBC 8.8 RBC 4.43 Hgb 12.2 Hct 38.6 MCV 87.1 MCH 27.6 MCHC 31.7 L RDW 13.3 Plt Count 279 MPV 8.1 Neut % (Auto) 72.3 Lymph % (Auto) 13.2 L [place] % (Auto) 12.9 H Eos % (Auto) 1.2 Baso % (Auto) 0.4 Neut # (Auto) 6.4 Lymph # (Auto) 1.2 [place] # (Auto) 1.1 H Eos # (Auto) 0.1 Baso # (Auto) 0.0 Sodium 138 Potassium 3.9 Chloride 99 Carbon Dioxide 27 Anion Gap 16 BUN 20 H Creatinine 0.7 Est GFR ( Amer) > 60 Est GFR (Non-Af Amer) > 60 Random Glucose 131 H Calcium 9.0 Total Bilirubin 0.4 AST 29 ALT 34 Alkaline Phosphatase 91 Total Protein 7.3 Albumin 3.7 Globulin 3.6 Albumin/Globulin Ratio 1.0 Urine Color Yellow Urine Clarity Cloudy Urine pH 6.0 Ur Specific [place] 1.020 Urine Protein 30 Urine Glucose (UA) Neg Urine Ketones Negative Urine Blood Large Urine Nitrate Negative Urine Bilirubin Negative Urine Urobilinogen 0.2-1.0 Ur Leukocyte Esterase Neg Urine RBC (Auto) 31 H Urine Microscopic WBC 3 Ur Squamous Epith Cells 4 Calcium Oxalate Crystal Mod H Urine Bacteria Occ H Assessment & Plan (1) Diverticulitis Assessment and Plan: Patient with several episodes of diverticulitis. Maintain NPO and broad spectrum antibiotics. On CT there was an area of concern with abnormal mucosal pattern in the left colon and colonoscopy recommended in 6 weeks. Also recommended is surgery input. Status: Acute Priority: High
--- NOTE | 2018-10-20 16:03 | CP.PCM.CON ---
History of Present Illness - History of Present Illness History of Present Illness: 57F with PMHx of HTN, hyperthyroidism, anxiety, diverticulitis, presents with complaints of LLQ pain. Patient states pain began day evening and progressively worsened. She reports nausea and non-bloody emesis. Pt complains of diarrhea. Denies fever/chills. Denies dysuria. Denies ever having a colonoscopy. PMHx: as stated above PSurgHx: x2 All: NKDA Soc Hx: Denies smoking, EtOH use, illicit drug use Review of Systems - Review of Systems Review of Systems: 10 pt ROS unremarkable except as stated in HPI Past Patient History - Infectious Disease Hx of Infectious Diseases: None - Tetanus Immunizations Tetanus Immunization: Unknown - Past Medical History & Family History Past Medical History?: Yes - Past Social History Alcohol: None Drugs: Denies - CARDIAC Hx Cardiac Disorders: Yes Other/Comment: Mass on heart (benign) - PULMONARY Hx Respiratory Disorders: No - NEUROLOGICAL Hx Neurological Disorder: No - HEENT Hx HEENT Problems: No - RENAL Hx Chronic Kidney Disease: No Hx Kidney Stones: Yes - ENDOCRINE/METABOLIC Hx Hyperthyroidism: Yes - HEMATOLOGICAL/ONCOLOGICAL Hx Human Immunodeficiency Virus (HIV): No - INTEGUMENTARY Hx Dermatological Problems: No - MUSCULOSKELETAL/RHEUMATOLOGICAL Hx Musculoskeletal Disorders: No - GASTROINTESTINAL Hx Diverticulitis: Yes - GENITOURINARY/GYNECOLOGICAL Hx Genitourinary Disorders: No - PSYCHIATRIC Hx Psychophysiologic Disorder: No Hx Substance Use: No - SURGICAL HISTORY Hx Surgeries: Yes Hx Section: Yes (1989; 1986; 1980) - ANESTHESIA Hx Anesthesia: Yes Hx Anesthesia Reactions: No Hx Malignant Hyperthermia: No Meds Allergies/Adverse Reactions: Allergies Allergy/AdvReac Type Severity Reaction Status Date / Time No Known Allergies Allergy Verified 10/20/18 01:45 - Medications Medications: Current Medications Atenolol (Tenormin) 25 mg PO DAILY [facility] Last Admin: 10/20/18 11:15 Dose: 25 mg Diltiazem HCl (Cardizem) 30 mg PO QID [facility] Last Admin: 10/20/18 11:14 Dose: 30 mg Ciprofloxacin (Cipro 200mg/100ml D5w) 100 mls @ 100 mls/hr IVPB Q12 [facility]; Protocol Last Admin: 10/20/18 12:15 Dose: 100 mls/hr Metronidazole (Flagyl 500mg/100ml Ns) 100 mls @ 100 mls/hr IVPB Q8 [facility]; Protocol Last Admin: 10/20/18 10:08 Dose: 100 mls/hr Dextrose/Lactated Ringer's (Dextrose 5%/Lactated Ringer's) 1,000 mls @ 100 mls/hr IV .Q10H [facility] Stop: 10/21/18 09:11 Last Admin: 10/20/18 10:19 Dose: 100 mls/hr Ketorolac Tromethamine (Toradol) 15 mg IVP Q6 PRN PRN Reason: Pain, moderate (4-7) Methimazole (Tapazole) 10 mg PO QAM [facility] Last Admin: 10/20/18 11:18 Dose: 10 mg Pantoprazole Sodium (Protonix Inj) 40 mg IVP DAILY [facility] Last Admin: 10/20/18 10:09 Dose: 40 mg Physical Exam - Constitutional Appears: No Acute Distress - Head Exam Head Exam: NORMOCEPHALIC - Eye Exam Eye Exam: EOMI, Normal appearance - ENT Exam ENT Exam: Mucous Membranes Moist - Respiratory Exam Respiratory Exam: NORMAL BREATHING PATTERN - Cardiovascular Exam Cardiovascular Exam: +S1, +S2 - GI/Abdominal Exam GI & Abdominal Exam: Soft, Tenderness. absent: Distended, Firm, Guarding, Rigid Additional comments: LLQ tenderness - Neurological Exam Neurological exam: Alert, Oriented x3 - Psychiatric Exam Psychiatric exam: Normal Mood - Skin Skin Exam: Dry, Intact, Warm Results - Vital Signs Recent Vital Signs: Last Vital Signs Temp 98.7 F 10/20/18 15:24 Pulse 86 10/20/18 15:24 Resp 18 10/20/18 15:24 BP 141/81 10/20/18 15:24 Pulse Ox 99 10/20/18 15:24 - Labs Result Diagrams: 10/20/18 02:45 10/20/18 02:45 Labs: Laboratory Results - last 24 hr 10/20/18 10/20/18 10/20/18 02:45 02:45 02:45 WBC 8.8 RBC 4.43 Hgb 12.2 Hct 38.6 MCV 87.1 MCH 27.6 MCHC 31.7 L RDW 13.3 Plt Count 279 MPV 8.1 Neut % (Auto) 72.3 Lymph % (Auto) 13.2 L [place] % (Auto) 12.9 H Eos % (Auto) 1.2 Baso % (Auto) 0.4 Neut # (Auto) 6.4 Lymph # (Auto) 1.2 [place] # (Auto) 1.1 H Eos # (Auto) 0.1 Baso # (Auto) 0.0 Sodium 138 Potassium 3.9 Chloride 99 Carbon Dioxide 27 Anion Gap 16 BUN 20 H Creatinine 0.7 Est GFR ( Amer) > 60 Est GFR (Non-Af Amer) > 60 Random Glucose 131 H Calcium 9.0 Total Bilirubin 0.4 AST 29 ALT 34 Alkaline Phosphatase 91 Total Protein 7.3 Albumin 3.7 Globulin 3.6 Albumin/Globulin Ratio 1.0 Urine Color Yellow Urine Clarity Cloudy Urine pH 6.0 Ur Specific [place] 1.020 Urine Protein 30 Urine Glucose (UA) Neg Urine Ketones Negative Urine Blood Large Urine Nitrate Negative Urine Bilirubin Negative Urine Urobilinogen 0.2-1.0 Ur Leukocyte Esterase Neg Urine RBC (Auto) 31 H Urine Microscopic WBC 3 Ur Squamous Epith Cells 4 Calcium Oxalate Crystal Mod H Urine Bacteria Occ H Assessment & Plan - Assessment and Plan (Free Text) Assessment: 57F with diverticulitis Plan: CLD IVF ABx Anti-emetics/analgesic prn Serial abd exams Will follow D/w Dr. Joe Corral PGY3
--- NOTE | 2018-10-20 20:12 | HP ---
HISTORY OF PRESENT ILLNESS: Ms. Mcneil is a 57-year-old female who was admitted via the emergency room because of abdominal pain and bloody diarrhea. She indicates that this started for the past couple of days prior to presentation to the emergency room. She denied nausea or vomiting, was seen in the emergency room back in March, had a complete workup in hospital, discharged home, but has been has not been any medication. PAST MEDICAL HISTORY: She also indicates that she has a history of diverticulitis, hypothyroidism and kidney stones. FAMILY HISTORY: Noncontributory. SOCIAL HISTORY: Socially, she does not smoke or drink. REVIEW OF SYSTEMS Essentially unremarkable. PHYSICAL EXAMINATION: GENERAL: The patient is alert and oriented, appears to still be in some pain from abdominal pain. VITAL SIGNS: Blood pressure 140/91, pulse of 106, respiratory rate 16. She is afebrile to low grade and temperature of 99.6 degrees Fahrenheit, O2 sat 97% on room air. SKIN: Shows fair turgor. HEENT: Pupils equal and react to light and accommodation. Mouth shows fair hygiene. JVP flat. LUNGS: Clear. HEART: Regular. No murmurs or gallop. ABDOMEN: Diffuse tenderness, more on the left lower quadrant area. GENITAL: Unremarkable. RECTAL: Unremarkable. EXTREMITIES: Show no edema or cyanosis. CENTRAL NERVOUS SYSTEM: Grossly intact. LABORATORY DATA: Remarkable for WBC of 8.8, hemoglobin 12.2, platelet count of 279,000. Sodium 138, potassium 3.8, BUN 20, creatinine 0.7, serum glucose 131. CT scan of abdomen is remarkable for diverticulitis and distended colon. IMPRESSION: Acute diverticulitis with rectal bleeding, history of hypoparathyroidism, and kidney stones. PLAN: The plan is IV hydration, IV antibiotics, analgesics for pain. Gastroenterology evaluation. We will place the patient on clear liquid diet for now. Brayan Pederson MD
--- NOTE | 2018-10-21 00:27 | CARD ---
APPROVED REPORT Date of service: 10/20/2018 EKG Measurement Heart [id number] <Conclusion> Atrial flutter with 2:1 AV conduction Left anterior fascicular block ST & T wave abnormality. Possibly prolonged QT Abnormal ECG CPT atrial flutter has replaced NSR. CCR
[2018-10-21] MEDS: metroNIDAZOLE 500mg/100ml NS 100 ML IVPB SCH (01:31)
[2018-10-21] MEDS: Dextrose 5%/Lactated Ringer's 1,000 ML IV SCH (05:00)
[2018-10-21] MEDS: Ciprofloxacin 200mg/100ml D5W 100 ML IVPB SCH ×2 (08:49→21:48)
--- NOTE | 2018-10-21 09:41 | CP.PCM.PN ---
Subjective - Date & Time of Evaluation Date of Evaluation: 10/21/18 Time of Evaluation: 09:41 - Subjective Subjective: ABDOMINAL PASIN IMPROVED NO DIARHEA C/O EXTREME ANXIETY WITH PANIC ATTACKS X YRS Objective - Vital Signs/Intake and Output Vital Signs (last 24 hours): Temp Pulse Resp BP Pulse Ox 98.4 F 101 H 20 144/97 H 98 10/21/18 08:30 10/21/18 08:51 10/21/18 08:49 10/21/18 08:51 10/21/18 08:49 - Medications Medications: Current Medications Atenolol (Tenormin) 25 mg PO DAILY [facility] Last Admin: 10/21/18 08:51 Dose: 25 mg Diltiazem HCl (Cardizem) 30 mg PO QID [facility] Last Admin: 10/21/18 08:49 Dose: 30 mg Ciprofloxacin (Cipro 200mg/100ml D5w) 100 mls @ 100 mls/hr IVPB Q12 [facility]; Protocol Last Admin: 10/21/18 08:49 Dose: 100 mls/hr Metronidazole (Flagyl 500mg/100ml Ns) 100 mls @ 100 mls/hr IVPB Q8 [facility] Last Admin: 10/21/18 01:31 Dose: 100 mls/hr Ketorolac Tromethamine (Toradol) 15 mg IVP Q6 PRN PRN Reason: Pain, moderate (4-7) Methimazole (Tapazole) 10 mg PO QAM [facility] Last Admin: 10/21/18 09:21 Dose: 10 mg Pantoprazole Sodium (Protonix Inj) 40 mg IVP DAILY [facility] Last Admin: 10/21/18 08:56 Dose: 40 mg - Labs Labs: 10/20/18 02:45 10/20/18 02:45 - Constitutional Appears: No Acute Distress - Head Exam Head Exam: ATRAUMATIC, NORMAL INSPECTION, NORMOCEPHALIC - Eye Exam Eye Exam: EOMI, Normal appearance, PERRL Pupil Exam: NORMAL ACCOMODATION, PERRL - ENT Exam ENT Exam: Mucous Membranes Moist, Normal Exam - Neck Exam Neck Exam: Full ROM, Normal Inspection. absent: Lymphadenopathy - Respiratory Exam Respiratory Exam: Clear to Ausculation Bilateral, NORMAL BREATHING PATTERN - Cardiovascular Exam Cardiovascular Exam: REGULAR RHYTHM, +S1, +S2. absent: Murmur - GI/Abdominal Exam GI & Abdominal Exam: Soft, Normal Bowel Sounds. absent: Tenderness - Rectal Exam Rectal Exam: NORMAL INSPECTION - Extremities Exam Extremities Exam: Full ROM, Normal Capillary Refill, Normal Inspection. absent: Joint Swelling, Pedal Edema - Back Exam Back Exam: NORMAL INSPECTION - Neurological Exam Neurological Exam: Alert, Awake, CN II-XII Intact, Normal Gait, Oriented x3 - Psychiatric Exam Psychiatric exam: Anxious - Skin Skin Exam: Dry, Intact, Normal Color, Warm Assessment and Plan - Assessment and Plan (Free Text) Assessment: ACUTE DIVERTICULITIS ANXIETY HTN Plan: ADVANCE DIET PSYCH EVAL
--- NOTE | 2018-10-21 11:58 | CP.PCM.PN ---
Subjective - Date & Time of Evaluation Date of Evaluation: 10/21/18 Time of Evaluation: 10:20 - Subjective Subjective: GI progress note for Dr. Cesar Patient seen and examined at bedside. Patient states pain is greatly improved but complains of nausea after breakfast and lack of appetite. Patient denies any emesis, last diarrhea was yesterday afternoon with some gross blood in it. Patient denies any fevers or chills Objective - Vital Signs/Intake and Output Vital Signs (last 24 hours): Temp Pulse Resp BP Pulse Ox 98.4 F 101 H 20 144/97 H 98 10/21/18 08:30 10/21/18 08:51 10/21/18 08:49 10/21/18 08:51 10/21/18 08:49 - Medications Medications: Current Medications Atenolol (Tenormin) 25 mg PO DAILY [facility] Last Admin: 10/21/18 08:51 Dose: 25 mg Diltiazem HCl (Cardizem) 30 mg PO QID [facility] Last Admin: 10/21/18 08:49 Dose: 30 mg Ciprofloxacin (Cipro 200mg/100ml D5w) 100 mls @ 100 mls/hr IVPB Q12 [facility]; Protocol Last Admin: 10/21/18 08:49 Dose: 100 mls/hr Metronidazole (Flagyl 500mg/100ml Ns) 100 mls @ 100 mls/hr IVPB Q8 [facility]; Protocol Last Admin: 10/21/18 01:31 Dose: 100 mls/hr Ketorolac Tromethamine (Toradol) 15 mg IVP Q6 PRN PRN Reason: Pain, moderate (4-7) Methimazole (Tapazole) 10 mg PO QAM [facility] Last Admin: 10/21/18 09:21 Dose: 10 mg Pantoprazole Sodium (Protonix Inj) 40 mg IVP DAILY [facility] Last Admin: 10/21/18 08:56 Dose: 40 mg - Labs Labs: 10/20/18 02:45 10/20/18 02:45 - Constitutional Appears: Well, Non-toxic, No Acute Distress - Head Exam Head Exam: ATRAUMATIC, NORMOCEPHALIC - Eye Exam Eye Exam: Normal appearance. absent: Conjunctival injection, Scleral icterus - ENT Exam ENT Exam: Mucous Membranes Moist, Normal Oropharynx - Respiratory Exam Respiratory Exam: NORMAL BREATHING PATTERN. absent: Accessory Muscle Use, Respiratory Distress - GI/Abdominal Exam GI & Abdominal Exam: Soft. absent: Distended, Tenderness, Rebound - Extremities Exam Extremities Exam: absent: Calf Tenderness, Pedal Edema, Tenderness - Neurological Exam Neurological Exam: Alert, Awake, Oriented x3 - Psychiatric Exam Psychiatric exam: Normal Affect, Normal Mood - Skin Skin Exam: Dry, Intact, Normal Color, Warm Assessment and Plan - Assessment and Plan (Free Text) Assessment: 57F with PMH of HTN, hyperthyroid, and anxiety recurrent diverticulitis with surrounding inflammation and possible mural thickening of the colon wall Plan: Continue current soft diet Decrease flagyl dose to 250mg Q8 d/t nausea and decreased appetite, continue cipro Recommend follow up in 2-[address] Cesar's office to schedule a colonoscopy in 6 weeks Follow up surgical evaluation for possible colon resection as patient has had multiple episodes of diverticulitis PRN pain and nausea medication Discussed with Dr. Cesar, who agrees with above Samantha Soliz, PGY2
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
--- NOTE | 2018-10-21 15:23 | CP.PCM.PN ---
Subjective - Date & Time of Evaluation Date of Evaluation: 10/21/18 Time of Evaluation: 07:30 - Subjective Subjective: Patient seen and examined. No acute events over night. Reports abdominal pain is significantly better. Denies fever/chills. Tolerating liquids. Passing flatus and having BM. Objective - Vital Signs/Intake and Output Vital Signs (last 24 hours): Temp Pulse Resp BP Pulse Ox 98.4 F 88 20 135/78 97 10/21/18 08:30 10/21/18 13:18 10/21/18 13:18 10/21/18 13:18 10/21/18 13:18 - Medications Medications: Current Medications Atenolol (Tenormin) 25 mg PO DAILY [facility] Last Admin: 10/21/18 08:51 Dose: 25 mg Diltiazem HCl (Cardizem) 30 mg PO QID [facility] Last Admin: 10/21/18 13:18 Dose: 30 mg Escitalopram Oxalate (Lexapro) 5 mg PO DAILY [facility] Ciprofloxacin (Cipro 200mg/100ml D5w) 100 mls @ 100 mls/hr IVPB Q12 [facility]; Protocol Last Admin: 10/21/18 08:49 Dose: 100 mls/hr Metronidazole 250 mg/ (Miscellaneous) 50 mls @ 50 mls/hr IVPB Q8H [facility]; Protocol Ketorolac Tromethamine (Toradol) 15 mg IVP Q6 PRN PRN Reason: Pain, moderate (4-7) Lorazepam (Ativan) 0.25 mg PO Q12 PRN PRN Reason: Anxiety Methimazole (Tapazole) 10 mg PO QAM [facility] Last Admin: 10/21/18 09:21 Dose: 10 mg Pantoprazole Sodium (Protonix Inj) 40 mg IVP DAILY [facility] Last Admin: 10/21/18 08:56 Dose: 40 mg - Labs Labs: 10/20/18 02:45 10/20/18 02:45 - Constitutional Appears: No Acute Distress - Head Exam Head Exam: NORMOCEPHALIC - Eye Exam Eye Exam: EOMI, Normal appearance - ENT Exam ENT Exam: Mucous Membranes Moist - Respiratory Exam Respiratory Exam: NORMAL BREATHING PATTERN - Cardiovascular Exam Cardiovascular Exam: +S1, +S2 - GI/Abdominal Exam GI & Abdominal Exam: Soft. absent: Distended, Firm, Guarding, Rigid, Tenderness - Neurological Exam Neurological Exam: Alert, Awake, Oriented x3 - Psychiatric Exam Psychiatric exam: Normal Mood - Skin Skin Exam: Dry, Intact, Warm Assessment and Plan - Assessment and Plan (Free Text) Assessment: 57F with diverticulitis Plan: -Adv diet as tolerated -ABx -No acute surgical intervention at this present time -D/w Dr. Joe Corral PGY3
[2018-10-21] MEDS: metroNIDAZOLE 500mg/100ml NS 250 MG in Premixed IV 1 EA IVPB SCH ×2 (16:17→20:41)
--- NOTE | 2018-10-21 17:04 | PQF ---
PROVIDER RESPONSE TEXT: HISTORY OF HYPERTHYROIDISM ON TAPAZOLE REVIEWER QUERY TEXT: Conflicting Documentation Clarification There is documentation of : Hyperthyroidism, Hypothyroidism and Hypoparathyroidism. Patient is on Tap azole. Please clarify which of the above diagnoses are ruled in and which are ruled out. A single mention or documentation of multiple diagnoses for the same clinical presentation appears in the record. Please clarify the diagnosis/diagnoses. Please also document if the condition is: -- Confirmed and current -- Confirmed, treated and resolved -- Ruled out -- Other, please specify The patient's Clinical Indicators include: ER: History of Hyperthyroidism GI: History of Hyperthyroidism Surgery: : History of Hyperthyroidism Medication: Tapazole Query created by: Abril Jenkins on 10/21/2018 8:50 AM Electronically signed by: Brayan Pederson MD 10/21/2018 5:01 PM
--- NOTE | 2018-10-21 17:04 | PQF ---
PROVIDER RESPONSE TEXT: NO EVIDENCE OF ATRIAL FLUTTER/FIBRILLATION EKG WAS SINUS RHYTHM WITH ARTIFARCTS REVIEWER QUERY TEXT: Atrial Flutter Type Atrial flutter is noted on the EKG. Please specify the type such as: -- Atypical - (Type II) -- Typical - (Type I) -- Other (please specify in the medical record) The patient's Clinical Indicators include: EKG: <Conclusion> Atrial flutter with 2:1 AV conduction Left anterior fascicular block Abnormal ECG CPT atrial flutter has replaced NSR.CCR Patient is on Cardizem and Tenormin. Query created by: Abril Jenkins on 10/21/2018 8:54 AM Electronically signed by: Brayan Pederson MD 10/21/2018 5:01 PM
[2018-10-22] MEDS: metroNIDAZOLE 500mg/100ml NS 250 MG in Premixed IV 1 EA IVPB SCH ×2 (04:32→12:14)
--- NOTE | 2018-10-22 07:58 | CP.PCM.PN ---
Subjective - Date & Time of Evaluation Date of Evaluation: 10/22/18 Time of Evaluation: 07:56 - Subjective Subjective: SURGERY NOTE FOR DR. JOVEL 58F seen and examined at bedside. Patient states she feels well, denies any nausea or vomiting, she has been tolerating diet, denies any pain. Objective - Vital Signs/Intake and Output Vital Signs (last 24 hours): Temp Pulse Resp BP Pulse Ox 98.8 F 71 18 136/77 96 10/22/18 01:00 10/22/18 01:00 10/22/18 01:00 10/22/18 01:00 10/22/18 01:00 - Medications Medications: Current Medications Atenolol (Tenormin) 25 mg PO DAILY [facility] Last Admin: 10/21/18 08:51 Dose: 25 mg Diltiazem HCl (Cardizem) 30 mg PO QID [facility] Last Admin: 10/21/18 21:07 Dose: 30 mg Escitalopram Oxalate (Lexapro) 5 mg PO DAILY [facility] Last Admin: 10/21/18 16:17 Dose: 5 mg Ciprofloxacin (Cipro 200mg/100ml D5w) 100 mls @ 100 mls/hr IVPB Q12 [facility]; Protocol Last Admin: 10/21/18 21:48 Dose: 100 mls/hr Metronidazole 250 mg/ (Miscellaneous) 50 mls @ 50 mls/hr IVPB Q8H [facility]; Protocol Last Admin: 10/22/18 04:32 Dose: Not Given Ketorolac Tromethamine (Toradol) 15 mg IVP Q6 PRN PRN Reason: Pain, moderate (4-7) Lorazepam (Ativan) 0.25 mg PO Q12 PRN PRN Reason: Anxiety Methimazole (Tapazole) 10 mg PO QAM [facility] Last Admin: 10/21/18 09:21 Dose: 10 mg Pantoprazole Sodium (Protonix Inj) 40 mg IVP DAILY [facility] Last Admin: 10/21/18 08:56 Dose: 40 mg - Labs Labs: 10/20/18 02:45 10/20/18 02:45 - Constitutional Appears: Non-toxic, No Acute Distress - Respiratory Exam Respiratory Exam: Clear to Ausculation Bilateral, NORMAL BREATHING PATTERN - Cardiovascular Exam Cardiovascular Exam: REGULAR RHYTHM, +S1, +S2 - GI/Abdominal Exam GI & Abdominal Exam: Soft. absent: Distended, Firm, Guarding, Rigid, Tenderness, Rebound - Neurological Exam Neurological Exam: Alert, Awake - Skin Skin Exam: Dry, Intact, Normal Color, Warm Assessment and Plan - Assessment and Plan (Free Text) Assessment: 58F with acute diverticulitis, resolved Plan: - continue diet - pain control - No surgical intervention Further recs discuss with Dr. Joe Wolfe, PGY3
[2018-10-22 08:55] VITALS: BP 140/91; PULSE 92; RESP 20; TEMP 97.7; O2SAT 98
--- NOTE | 2018-10-22 09:39 | CP.PCM.DIS ---
Provider - Provider Date of Admission: 10/20/18 06:26 Attending physician: Brayan Pederson MD Consults: 10/20/18 06:27 Surgery [General Surgery Consult] Stat Comment: Consulting Provider: Oliva Diaz Consulting Physician: Oliva Diaz Reason for Consult: diverticulitis 10/20/18 06:28 Gastroenterology Consult Stat Comment: Consulting Provider: Jose Bustamante Consulting Physician: Jose Bustamante Reason for Consult: diverticulitis 10/21/18 09:07 Psychiatry Consult Routine Comment: Consulting Provider: Neda Aleman Consulting Physician: Neda Aleman Reason for Consult: Anxiety, patient has panic attacks 10/22/18 07:01 Case Management Referral Routine Comment: see Dr. Aleman notes Physician Instructions: Reason For Exam: family dynamics issues Reason for Referral: Operations Support Specialist Eval Time Spent in preparation of Discharge (in minutes): 35 Diagnosis - Discharge Diagnosis (1) Anxiety Status: Acute Comment: calmer on ativan rx. will add lexapro on d/c home (2) Abdominal pain Status: Acute Comment: resolved (3) Cardiac anomaly Status: Acute Priority: Medium Comment: pt aware of cardiac anomaly x several years and follows up with dr becerra[pullboat engineer]--she declined surgical intervention (4) DVT prophylaxis Status: Acute Priority: Medium (5) Diverticulitis Status: Acute Priority: High Comment: abnormal ct scan results--to undergo colonoscopy with dr bustamante in 3 weeks to r/o malignancy (6) Right atrial mass Status: Acute (7) Hyperthyroidism Status: Chronic Priority: Medium Comment: stable (8) Hypertension Status: Acute Comment: better controlled on meds Hospital Course - Lab Results Lab Results: Micro Results 10/20/18 02:45 Blood-Venous Blood Culture - Preliminary NO GROWTH AFTER 48 HOURS 10/20/18 03:15 Blood-Venous Blood Culture - Preliminary NO GROWTH AFTER 48 HOURS 10/20/18 02:45 Urine,Clean Catch Urine Culture - Final No Growth (<1,000 CFU/ML) Most Recent Lab Values WBC 8.8 K/uL (4.8-10.8) 10/20/18 02:45 RBC 4.43 Mil/uL (3.80-5.20) 10/20/18 02:45 Hgb 12.2 g/dL (12.0-16.0) 10/20/18 02:45 Hct 38.6 % (34.0-47.0) 10/20/18 02:45 MCV 87.1 fl (81.0-99.0) 10/20/18 02:45 MCH 27.6 pg (27.0-31.0) 10/20/18 02:45 MCHC 31.7 g/dL (33.0-37.0) L 10/20/18 02:45 RDW 13.3 % (11.5-14.5) 10/20/18 02:45 Plt Count 279 K/uL (130-400) 10/20/18 02:45 MPV 8.1 fl (7.2-11.7) 10/20/18 02:45 Neut % (Auto) 72.3 % (50.0-75.0) 10/20/18 02:45 Lymph % (Auto) 13.2 % (20.0-40.0) L 10/20/18 02:45 [place] % (Auto) 12.9 % (0.0-10.0) H 10/20/18 02:45 Eos % (Auto) 1.2 % (0.0-4.0) 10/20/18 02:45 Baso % (Auto) 0.4 % (0.0-2.0) 10/20/18 02:45 Neut # (Auto) 6.4 K/uL (1.8-7.0) 10/20/18 02:45 Lymph # (Auto) 1.2 K/uL (1.0-4.3) 10/20/18 02:45 [place] # (Auto) 1.1 K/uL (0.0-0.8) H 10/20/18 02:45 Eos # (Auto) 0.1 K/uL (0.0-0.7) 10/20/18 02:45 Baso # (Auto) 0.0 K/uL (0.0-0.2) 10/20/18 02:45 Sodium 138 mmol/l (132-148) 10/20/18 02:45 Potassium 3.9 MMOL/L (3.6-5.0) 10/20/18 02:45 Chloride 99 mmol/L (98-107) 10/20/18 02:45 Carbon Dioxide 27 mmol/L (22-30) 10/20/18 02:45 Anion Gap 16 (10-20) 10/20/18 02:45 BUN 20 mg/dl (7-17) H 10/20/18 02:45 Creatinine 0.7 mg/dl (0.7-1.2) 10/20/18 02:45 Est GFR ( Amer) > 60 10/20/18 02:45 Est GFR (Non-Af Amer) > 60 10/20/18 02:45 Random Glucose 131 mg/dL (65-105) H 10/20/18 02:45 Calcium 9.0 mg/dL (8.4-10.2) 10/20/18 02:45 Total Bilirubin 0.4 mg/dl (0.2-1.3) 10/20/18 02:45 AST 29 U/L (14-36) 10/20/18 02:45 ALT 34 U/L (9-52) 10/20/18 02:45 Alkaline Phosphatase 91 U/L (38-126) 10/20/18 02:45 Total Protein 7.3 G/DL (6.3-8.2) 10/20/18 02:45 Albumin 3.7 g/dL (3.5-5.0) 10/20/18 02:45 Globulin 3.6 gm/dL (2.2-3.9) 10/20/18 02:45 Albumin/Globulin Ratio 1.0 (1.0-2.1) 10/20/18 02:45 Urine Color Yellow (YELLOW) 10/20/18 02:45 Urine Clarity Cloudy (Clear) 10/20/18 02:45 Urine pH 6.0 (5.0-8.0) 10/20/18 02:45 Ur Specific [place] 1.020 (1.003-1.030) 10/20/18 02:45 Urine Protein 30 mg/dL (NEGATIVE) 10/20/18 02:45 Urine Glucose (UA) Neg mg/dL (NEGATIVE) 10/20/18 02:45 Urine Ketones Negative mg/dL (NEGATIVE) 10/20/18 02:45 Urine Blood Large (NEGATIVE) 10/20/18 02:45 Urine Nitrate Negative (NEGATIVE) 10/20/18 02:45 Urine Bilirubin Negative (NEGATIVE) 10/20/18 02:45 Urine Urobilinogen 0.2-1.0 mg/dL (0.2-1.0) 10/20/18 02:45 Ur Leukocyte Esterase Neg Hugh/uL (Negative) 10/20/18 02:45 Urine RBC (Auto) 31 /hpf (0-3) H 10/20/18 02:45 Urine Microscopic WBC 3 /hpf (0-5) 10/20/18 02:45 Ur Squamous Epith Cells 4 /hpf (0-5) 10/20/18 02:45 Calcium Oxalate Crystal Mod /hpf (<OCC) H 10/20/18 02:45 Urine Bacteria Occ (<OCC) H 10/20/18 02:45 - Hospital Course Hospital Course: abdominal pain and diarrhea with rectal bleeding resolved anxiety improved with ativan Discharge Exam - Head Exam Head Exam: NORMOCEPHALIC - Eye Exam Eye Exam: EOMI, Normal appearance, PERRL Pupil Exam: NORMAL ACCOMODATION, PERRL - Neck Exam Neck exam: Thyromegaly - GI/Abdominal Exam GI & Abdominal Exam: Normal Bowel Sounds - Rectal Exam Rectal Exam: NORMAL INSPECTION - Neurological Exam Neurological exam: Alert, CN II-XII Intact, Normal Gait, Oriented x3, Reflexes Normal - Psychiatric Exam Psychiatric exam: Anxious, Normal Mood - Skin Skin Exam: Dry, Intact, Normal Color, Warm Discharge Plan - Follow Up Plan Condition: FAIR Disposition: HOME/ ROUTINE Instructions: Low Fiber Diet, Diverticulitis (DC) Additional Instructions: Eat a low fiber diet for 2-4 weeks Then eat a high fiber diet once your infection is improved follow up with pullboat engineer and apparel patternmaker and psychiatrist Referrals: Jose Bustamante MD [Staff Provider] -
[2018-10-22] MEDS: Ciprofloxacin 200mg/100ml D5W 100 ML IVPB SCH (10:17)
--- NOTE | 2018-10-22 14:38 | CP.PCM.PN ---
Subjective - Date & Time of Evaluation Date of Evaluation: 10/22/18 Time of Evaluation: 10:00 - Subjective Subjective: Patient without pain and tolerating diet Objective - Vital Signs/Intake and Output Vital Signs (last 24 hours): Temp Pulse Resp BP Pulse Ox 97.7 F 92 H 20 140/91 H 98 10/22/18 08:53 10/22/18 08:53 10/22/18 08:53 10/22/18 08:53 10/22/18 08:53 - Labs Labs: 10/20/18 02:45 10/20/18 02:45 - Head Exam Head Exam: ATRAUMATIC - Eye Exam Eye Exam: Normal appearance - ENT Exam ENT Exam: Normal Exam - Neck Exam Neck Exam: Full ROM - Respiratory Exam Respiratory Exam: Clear to Ausculation Bilateral - Cardiovascular Exam Cardiovascular Exam: REGULAR RHYTHM, +S1, +S2 - GI/Abdominal Exam GI & Abdominal Exam: Soft, Normal Bowel Sounds. absent: Tenderness Assessment and Plan (1) Diverticulitis Assessment & Plan: Symptoms have resolved. Continue abx. colonoscopy in 6 weeks as outpatient. Status: Acute
== END 2018-10-22 14:24 | disposition home or self-care (01) | DRG 174 ==
LOC: H.ER 01:33 → H.ERHOLD 06:26 → H.MEDSURG1 15:30
PROVIDERS: ADMIT Internal Medicine Pulmonary Disease; ATTEND Internal Medicine Pulmonary Disease
DX: K57.33 Diverticulitis of large intestine without perforation or abscess with bleeding (principal); E05.90 Thyrotoxicosis, unspecified without thyrotoxic crisis or storm; E20.9 Hypoparathyroidism, unspecified; I51.9 Heart disease, unspecified; F41.0 Panic disorder [episodic paroxysmal anxiety]; F43.23 Adjustment disorder with mixed anxiety and depressed mood; I10 Essential (primary) hypertension